=== PATIENT | female | born 1930 | race Caucasian/White ===

== ENCOUNTER → 2017-01-27 | Outpatient (CLI) | payer MEDICARE, BC ==
[~2017-01-27] MED LIST: AMBI5TAB PO; AMLO10 PO; ATOR10TA15 PO; DIGO1TAB59 PO; ENAL5TAB PO; ESTR1.25 PO; FURO1TAB60 PO; HYDR-3534 PO; LATA.005%O EACH EYE; METO25TA3 PO; MS C15TA2 PO; NABU1TAB37 PO; NITR0.4S SL; ONETAB22 PO; XARE20TA PO; [UNRECOGNIZED DRUG - CODE] PO
[2017-01-27 13:29] LABS: AUTOMATED NEUTROPHIL # 6.1 TH/MM3 (1.8-7.7); BASOPHIL % 0.2 % (0.0-2.0); EOSINOPHIL # 0.2 TH/MM3 (0-0.4); EOSINOPHIL % 2.5 % (0.0-4.0); HEMATOCRIT 41.1 % (35.0-46.0); HEMO FLAGS DIFF FINAL; LYMPH % 25.5 % (9.0-44.0); LYMPHOCYTE # 2.4 TH/MM3 (1.0-4.8); MEAN CELL VOLUME 88.3 FL (80.0-100.0); MEAN CORPUSCULAR HEMOGLOBIN 29.1 PG (27.0-34.0); MONO % 9.3 % (0.0-8.0); NEUT % 62.5 % (16.0-70.0); PLATELET COUNT 244 TH/MM3 (150-450); RED BLOOD COUNT 4.66 MIL/MM3 (4.00-5.30); RED CELL DISTRIBUTION WIDTH 13.6 % (11.6-17.2); WHITE BLOOD COUNT 9.6 TH/MM3 (4.0-11.0)
[2017-01-27 13:30] LABS: BLOOD, URINE NEG (NEG); GLUCOSE,URINE NEG (NEG); KETONE, URINE NEG (NEG); NITRITE,URINE NEG (NEG)
[2017-01-27 13:44] LABS: INTERNATIONAL NORMALIZED RATIO 1.1 RATIO; PROTHROMBIN TIME - PATIENT 11.8 SEC (9.8-11.6)
[2017-01-27 13:53] LABS: METHOD OF COLLECTION CLEAN CATCH; URINE COLOR YELLOW (YELLW/STRAW)
[2017-01-27 13:54] LABS: COMMENT (UR) CULT NOT INDICATED; CULTURE IF INDICATED CULT NOT INDICATED; SQUAMOUS EPITHELIAL CELL URINE 0-5 /hpf (0-5); WBC, URINE 0-2 /hpf (0-5)
== END ==
LOC: PHPRE 12:38
PROVIDERS: ATTEND Pain Medicine Interventional Pain Medicine
DX: Z01.812 Encounter for preprocedural laboratory examination (principal); Z45.89 Encounter for adjustment and management of other implanted devices; M54.5 Low back pain; Z79.01 Long term (current) use of anticoagulants
CPT/HCPCS: 36415; 81001; 84132; 85025; 85610

== ENCOUNTER → 2017-02-07 | Day surgery (SDC) | payer MEDICARE, BC ==
[~2017-02-07] VITALS: Ht 149.9 cm; Wt 60.0 kg
[~2017-02-07] MED LIST changes: +ACETAMINOPHEN/HYDROcodone 325 MG/5 MG TAB ONE; -AMLO10 PO; -ATOR10TA15 PO; +BUPIVACAINE/EPINEPHRINE 0.25% PF 30 ML VIAL ONE; +CHLORHEXIDINE GLUCONATE 2 % 1 PACK (2 CLOTHS) TOPICAL PRN; +INSULIN HUMAN REGULAR 1,000 UNITS/10 ML VIAL SQ PRN; +LACTATED RINGER'S 1000 ML INJ 1,000 ML ONE; +LACTATED RINGER'S 1000 ML IV PRN; +METOPROLOL TARTRATE 25 MG TAB PO PRN; +POVIDONE IODINE 5% (ANTISEPSIS KIT) 4 APPLICATIONS EACH NARE PRN; +PROPOFOL 200 MG/20 ML AMP IV ONE; +SODIUM CHLORID 0.9% 500 ML IV PRN; +VANCOMYCIN 500 MG VIAL ONE; +VANCOMYCIN 500 MG/NS 100 ML IV SCH; +ceFAZolin 1,000 MG/NS 100 ML IV SCH
[2017-02-07 10:12] VITALS: BP 159/98; PULSE 89; RESP 18; TEMP 98.8; O2SAT 95
[2017-02-07 10:26] LABS: PROTHROMBIN TIME - PATIENT 11.5 SEC (9.8-11.6)
--- NOTE | 2017-02-07 14:15 | MP ---
cc: CLEMENT BAER M.D. DATE OF SURGERY: 02/07/2017 DATE OF : 1930 PROCEDURE Replacement of Medtronic dual-channel non-rechargeable pulse generator for cluneal nerve stimulation. PREPROCEDURE DIAGNOSIS Intractable back pain. POSTPROCEDURE DIAGNOSIS Intractable back pain. PROCEDURE NOTE An IV was started in the holding area. The patient was given IV antibiotics. Her surgical site was marked. Sequential compression hose were placed on her lower extremities. She was taken to the operating room, placed in the supine position, sedated and monitored by Anesthesia. Her abdomen was prepped with ChloraPrep and draped with sterile drapes. The skin over the pulse generator in the right subcostal area was infiltrated with 0.25% Marcaine containing epinephrine. An incision was then made over the existing pulse generator. The pulse generator was exteriorized and disconnected from the stimulating electrodes and a new [employer] pulse generator was attached to the stimulating electrodes by tightening Rohit screw. Impedance was checked at the bedside and found to be appropriate in all the electrodes. The pulse generator was then placed in the subcutaneous pocket with the letter side facing the skin and anchored to the underlying fascia using two 2-0 Ethibond sutures. The incision was then irrigated with Betadine. Closure took place with 3-0 Monocryl in the subcuticular tissue and 3-0 nylon on the skin. The incisions were covered with sterile adhesive dressings and the patient was taken to the recovery room with stable vital signs, neurologically intact. W. MD SALOMON Mcfadden/ELIGIO /1:27 PM /2:09 PM
[2017-02-07 14:40] VITALS: BP 155/84; PULSE 81; RESP 16; TEMP 98.2; O2SAT 97
== END | disposition home or self-care (01) ==
LOC: PHSDC 09:26
PROVIDERS: ATTEND Pain Medicine Interventional Pain Medicine
DX: Z45.49 Encounter for adjustment and management of other implanted nervous system device (principal); M54.9 Dorsalgia, unspecified; M96.1 Postlaminectomy syndrome, not elsewhere classified; Z79.01 Long term (current) use of anticoagulants
CPT/HCPCS: 00300; 36415; 63685; 85610; C1767; J3370; J7120

== ENCOUNTER → 2017-08-17 | Outpatient (CLI) | payer MEDICARE, BC ==
[~2017-08-17] MED LIST changes: -ACETAMINOPHEN/HYDROcodone 325 MG/5 MG TAB ONE; -BUPIVACAINE/EPINEPHRINE 0.25% PF 30 ML VIAL ONE; -CHLORHEXIDINE GLUCONATE 2 % 1 PACK (2 CLOTHS) TOPICAL PRN; +ESTR42.5V VAGINAL; -INSULIN HUMAN REGULAR 1,000 UNITS/10 ML VIAL SQ PRN; -LACTATED RINGER'S 1000 ML INJ 1,000 ML ONE; -LACTATED RINGER'S 1000 ML IV PRN; -METOPROLOL TARTRATE 25 MG TAB PO PRN; -MS C15TA2 PO; +MS C15TA7 PO; -ONETAB22 PO; -POVIDONE IODINE 5% (ANTISEPSIS KIT) 4 APPLICATIONS EACH NARE PRN; -PROPOFOL 200 MG/20 ML AMP IV ONE; -SODIUM CHLORID 0.9% 500 ML IV PRN; -VANCOMYCIN 500 MG VIAL ONE; -VANCOMYCIN 500 MG/NS 100 ML IV SCH; -ceFAZolin 1,000 MG/NS 100 ML IV SCH
[2017-08-17 13:23] LABS: HEMATOCRIT 39.7 % (35.0-46.0); HEMOGLOBIN 13.7 GM/DL (11.6-15.3); MEAN CORPUSCULAR HGB CONC 34.5 % (32.0-36.0); PLATELET COUNT 216 TH/MM3 (150-450); RED BLOOD COUNT 4.56 MIL/MM3 (4.00-5.30); RED CELL DISTRIBUTION WIDTH 14.1 % (11.6-17.2)
[2017-08-17 13:27] LABS: ALBUMIN 3.7 GM/DL (3.4-5.0); AST (GOT) 26 U/L (15-37); BICARBONATE 28.3 MEQ/L (21.0-32.0); BLOOD UREA NITROGEN 16 MG/DL (7-18); CALCIUM 8.9 MG/DL (8.5-10.1); CHLORIDE 101 MEQ/L (98-107); CHOLESTEROL 180 MG/DL (120-200); CREATININE 0.68 MG/DL (0.50-1.00); GLOMERULAR FILTRATION RATE 81 ML/MIN (>89); GLUCOSE,FASTING 133 MG/DL (74-99); SODIUM (NA) 138 MEQ/L (136-145)
[2017-08-17 13:37] LABS: ALKALINE PHOSPHATASE 105 U/L (45-117); ALT (GPT) 24 U/L (10-53); CHOLESTEROL/ HDL RATIO 3.74 RATIO; FREE T4 0.99 NG/DL (0.76-1.46); HDL CHOLESTEROL 48.1 MG/DL (40.0-60.0); LDL CHOLESTEROL 107 MG/DL (0-99); TOTAL BILIRUBIN ADULT 0.6 MG/DL (0.2-1.0); TOTAL PROTEIN 7.9 GM/DL (6.4-8.2); TRIGLYCERIDES 127 MG/DL (42-150)
== END ==
LOC: PLAB 10:30
PROVIDERS: ATTEND Family Medicine
DX: R30.0 Dysuria (principal); R60.0 Localized edema; M19.90 Unspecified osteoarthritis, unspecified site; I48.91 Unspecified atrial fibrillation; I10 Essential (primary) hypertension; I87.2 Venous insufficiency (chronic) (peripheral)
CPT/HCPCS: 36415; 80053; 80061; 84439; 84443; 85027

== ENCOUNTER 2017-10-14 19:07 | Emergency (ER) | payer MEDICARE, BC ==
[~2017-10-14] VITALS: Ht 149.9 cm; Wt 59.9 kg
[2017-10-14 19:26] VITALS: BP 208/100; PULSE 68; RESP 16; TEMP 98.5; O2SAT 95
[2017-10-14 21:10] VITALS: BP 16/91; PULSE 72; RESP 16; O2SAT 97
[2017-10-14] MEDS ORDERED: TETANUS/DIPHTHERIA TOXOID ADULT 0.5 ML VIAL IM ONE (21:15)
[2017-10-14] MEDS ORDERED: LIDOCAINE 1%/EPINEPHrine 1:100,000 SOLN 20 ML VIAL INFIL ONE (21:15)
--- NOTE | 2017-10-14 21:17 | PD ---
HPI Chief Complaint: Laceration/Skin Injury Time Seen by Provider: 20:59 Travel History International Travel<30 days: No Contact w/Intl Traveler<30days: No Traveled to known affect area: No History of Present Illness HPI The patient is a 87-year-old female who presents to the emergency department for small puncture wound to the extensor surface of the right hand. The patient accidentally cut the extensor surface of her right hand yesterday. The patient states she had no difficulty yesterday, there is no bleeding or pain. However, she cleaned it earlier today and started to have bleeding from the affected wound. The patient does take Xarelto. Last tetanus shot is unknown. The patient did put a pressure dressing of the affected area, however , it continued to bleed. She denies any difficulties in the right upper extremity or right hand. She denies any numbness or tingling to the right hand. PFSH Past Medical History Arthritis: Yes Asthma: Yes Atrial Fibrillation: Yes Autoimmune Disease: No Blood Disorders: No Anxiety: No Depression: No Heart Rhythm Problems: No Cancer: No Cardiovascular Problems: Yes (HX OF CHF, IRREGULAR HEARTBEAT, HX OF ATRIAL FIB ) High Cholesterol: No Chemotherapy: No Chest Pain: No Congestive Heart Failure: Yes COPD: No Cerebrovascular Accident: No Diabetes: No Diminished Hearing: No Endocrine: No Gastrointestinal Disorders: Yes (HX OF STOMACH ULCERS A YOUNG PERSON) GERD: No Glaucoma: No Genitourinary: Yes Headaches: No Hepatitis: No Hiatal Hernia: No Hypertension: Yes Immune Disorder: No Implanted Vascular Access Dvce: Yes Kidney Stones: No Musculoskeletal: Yes (ARTHRITIS, BACK PROBLEMS, PT HAS NEUROSTIMULATOR) Neurologic: Yes (PT HAS NEUROSTIMULATOR FOR LOWER BACK PAIN) Psychiatric: No Reproductive: No Respiratory: No Migraines: No Myocardial Infarction: No Radiation Therapy: No Renal Failure: No Seizures: No Sickle Cell Disease: No Sleep Apnea: No Thyroid Disease: No Ulcer: No ?: Not Menopausal: Yes Past Surgical History Abdominal Surgery: Yes (APPENDECTOMY 1964) AICD: No Appendectomy: Yes Arteriovenous Shunt: No Body Medical Devices: neurostimulator(battery right side of abdomen) Cardiac Surgery: No Cholecystectomy: No Ear Surgery: No Endocrine Surgery: No Eye Surgery: Yes (vinita cataract surgery) Genitourinary Surgery: No Gynecologic Surgery: Yes (hysterectomy) Hysterectomy: Yes Insulin Pump: No Joint Replacement: Yes (BILAT HIP AND R SHOULDER REPLACED) Neurologic Surgery: Yes (DISC REMOVAL/neurostimulator implanted to RLQ) Oral Surgery: No Pacemaker: No Thoracic Surgery: No Other Surgery: Yes (BACK SURG FOR BULGING DISK, right hip replaced 09/07) Social History Alcohol Use: No Tobacco Use: No Substance Use: No Allergies-Medications (Allergen,Severity, Reaction): Coded Allergies: Sulfa (Sulfonamide Antibiotics) (Verified Allergy, Severe, Hives, 10/14/17) HIVES acetaminophen (Verified Allergy, Severe, hives, 10/14/17) oxycodone (Verified Allergy, Severe, hives, 10/14/17) penicillin G (Verified Allergy, Severe, UNKNOWN, 10/14/17) PATIENT STATES SHE IS NOT ALLERGIC sulfamethoxazole (Verified Allergy, Severe, Hives, 10/14/17) hives trimethoprim (Verified Allergy, Severe, Hives, 10/14/17) hives Reported Meds & Prescriptions Reported Meds & Active Scripts Active Keflex (Cephalexin) 500 Mg Cap 500 Mg PO Q6H 5 Days Estrace Vaginal (Estradiol) 0.01% Cream 1 Gm VAGINAL HS Reported Premarin (Estrogens Conjugated) 1.25 Mg Tab 1.25 Mg PO DAILY PRN Nitrostat SL (Nitroglycerin) 0.4 Mg Subl 0.4 Mg SL DIRECTED PRN 1 tablet under the tongue as needed for chest pain. Repeat every 5 minutes for a total of 3 DOSES or call 911 if NO relief. Metoprolol Tartrate 25 Mg Tab 25 Mg PO TID Digitek (Digoxin) 0.125 Mg Tab 0.125 Mg PO DAILY Ambien (Zolpidem Tartrate) 5 Mg Tab 5 Mg PO HS PRN Xarelto (Rivaroxaban) 20 Mg Tab 20 Mg PO DAILY Nabumetone 500 Mg Tab 1,000 Mg PO DAILY Ms Contin (Morphine Sulfate) 15 Mg Tab 15 Mg PO BID Xalatan Opth Drops (Latanoprost) 0.005% Drops 1 Drop EACH EYE HS Lortab (Hydrocodone-Acetaminophen) 7.5-325 Mg Tab 1 Tab PO Q6H PRN Lasix (Furosemide) 40 Mg Tab 40 Mg PO DAILY Enalapril (Enalapril Maleate) 5 Mg Tab 10 Mg PO DAILY Parafon Forte Dsc (Chlorzoxazone) 500 Mg Tab 250 Mg PO BID Review of Systems Except as stated in HPI: all other systems reviewed are Neg General / Constitutional: No: Fever Musculoskeletal: No: Pain Skin: Positive Other (As noted in the history of present) Neurologic: No: Paresthesia, Sensory Disturbance Physical Exam Narrative GENERAL: Awake, alert, pleasant 87-year-old female who appears her stated age and is in no acute respiratory distress. SKIN: Focused skin assessment warm/dry. HEAD: Atraumatic. Normocephalic. EYES: No injection or drainage. ENT: No nasal bleeding or discharge. Mucous membranes pink and moist. NECK: Trachea midline. No JVD. MUSCULOSKELETAL: Patient has a small puncture wound with skin tear to the extensor surface of the right hand. There is a small amount of venous bleeding from the affected area. Positive right radial pulse. Intrinsic hand muscles on the right are intact. NEUROLOGICAL: Awake and alert. No obvious cranial nerve deficits. Motor grossly within normal limits. Normal speech. Nonfocal. Oriented 3. PSYCHIATRIC: Appropriate mood and affect; insight and judgment normal. Data Data Last Documented VS Vital Signs Date Time Temp Pulse Resp B/P (MAP) Pulse Ox O2 Delivery O2 Flow Rate FiO2 10/14/17 21:10 72 16 16/ (66) 97 Room Air 10/14/17 19:26 98.5 Orders Orders Lidocai-Epi 1%-1:100,000 Inj (Xylocaine- (10/14/17 21:15) Tetanus/Diphtheria Tox Adult (Tetanus/Di (10/14/17 21:15) Cephalexin (Keflex) (10/14/17 21:45) Ed Discharge Order (10/14/17 22:16) [facility] Medical Decision Making Medical Screen Exam Complete: Yes Emergency Medical Condition: Yes Medical Record Reviewed: Yes Differential Diagnosis Differential diagnosis includes laceration, puncture wound, hematoma, contusion , medication side effect, coagulopathy, venous injury, arterial injury, capillary injury. Narrative Course The patient's puncture wound and abrasion was anesthetized 1% lidocaine with epinephrine using a 27-gauge needle. The area was irrigated and cleaned, visualize, and two [id number] sutures were placed in the affected area. There is then cleaned again with sterile saline and monitored. There is no further bleeding. The patient had Polysporin and a dry sterile dressing applied. She is advised to have the sutures removed in 10-14 days or allow to dissolve on their own as they are 4-0 Vicryl. Procedures Procedure Narrative The laceration on the patient's left hand was anesthetized with 1% lidocaine with epinephrine using a 27-gauge needle. It was irrigated with sterile saline and Betadine, irrigated once again with sterile saline. It was more of a skin tear with a small puncture wound to superficial vein, therefore, 2 figure-of- eight sutures were placed with 4-0 Vicryl. The area was then irrigated once again there is no further bleeding. The patient tolerated the procedure without difficulty. There was no obvious complications. Diagnosis Primary Impression: Puncture wound of right hand with complication Qualified Codes: S61.431A - Puncture wound without foreign body of right hand , initial encounter Patient Instructions: General Instructions Additional Instructions: Keflex as directed. Clean the area twice a day with soap and water, apply Polysporin. The sutures will dissolve or you can have them removed in 10-14 days. Return if symptoms worsen or progress. Follow-up with your primary physician. Med/Other Pt SpecificInfo: Prescription(s) given Scripts Cephalexin (Keflex) 500 Mg Cap 500 MG PO Q6H for Infection for 5 Days, #20 CAP 0 Refills Prov: Jared Bush MD 10/14/17 Disposition: 01 DISCHARGE HOME Condition: Stable Jared Bush MD Oct 14, 2017 21:17
[2017-10-14] MEDS ORDERED: CEPH-460 PO (21:45)
[2017-10-14] MEDS ORDERED: CEPHALEXIN MONOHYDRATE 500 MG CAP PO ONE (21:45)
[2017-10-14 22:55] VITALS: BP 197/87
[2017-10-14] MEDS ORDERED: HYDR1SOL6 PO (23:08)
== END 2017-10-14 23:00 | disposition home or self-care (01) ==
LOC: PHED 19:07
DX: I48.91 Unspecified atrial fibrillation (principal); I10 Essential (primary) hypertension; I50.9 Heart failure, unspecified; M19.90 Unspecified osteoarthritis, unspecified site; W45.8XXA Other foreign body or object entering through skin, initial encounter; Z23 Encounter for immunization; Z79.01 Long term (current) use of anticoagulants; Z87.448 Personal history of other diseases of urinary system; Z87.09 Personal history of other diseases of the respiratory system; Z86.79 Personal history of other diseases of the circulatory system; Z86.69 Personal history of other diseases of the nervous system and sense organs
CPT/HCPCS: 12001; 90471; 90714

== ENCOUNTER → 2017-11-03 | Outpatient (CLI) | payer MEDICARE, BC ==
[~2017-11-03] MED LIST changes: +CEPH-460 PO; -ESTR1.25 PO; -ESTR42.5V VAGINAL; -HYDR-3534 PO; +HYDR1SOL6 PO
[2017-11-03 16:39] LABS: AUTOMATED NEUTROPHIL # 6.3 TH/MM3 (1.8-7.7); BASOPHIL # 0.1 TH/MM3 (0-0.2); BASOPHIL % 0.5 % (0.0-2.0); EOSINOPHIL # 0.3 TH/MM3 (0-0.4); HEMATOCRIT 37.7 % (35.0-46.0); HEMOGLOBIN 12.9 GM/DL (11.6-15.3); LYMPH % 21.4 % (9.0-44.0); MEAN CELL VOLUME 89.4 FL (80.0-100.0); MEAN CORPUSCULAR HEMOGLOBIN 30.5 PG (27.0-34.0); MEAN CORPUSCULAR HGB CONC 34.1 % (32.0-36.0); MEAN PLATELET VOLUME 10.9 FL (7.0-11.0); MONO % 7.3 % (0.0-8.0); MONOCYTE # 0.7 TH/MM3 (0-0.9); NEUT % 67.8 % (16.0-70.0); PLATELET COUNT 226 TH/MM3 (150-450); RED BLOOD COUNT 4.21 MIL/MM3 (4.00-5.30); RED CELL DISTRIBUTION WIDTH 15.8 % (11.6-17.2); WHITE BLOOD COUNT 9.3 TH/MM3 (4.0-11.0)
== END ==
LOC: PLAB 13:22
PROVIDERS: ATTEND Family Medicine
DX: R06.09 Other forms of dyspnea (principal)
CPT/HCPCS: 36415; 83880; 85025